=== PATIENT | female | born 1995 | race African-American/Black ===

== ENCOUNTER 2018-02-17 12:55 | Emergency (ER) | payer MEDICAID ==
[~2018-02-17] VITALS: Ht 154.9 cm; Wt 69.9 kg
[2018-02-17 13:15] VITALS: BP 120/60
[2018-02-17 13:22] LABS: BILIRUBIN,URINE NEGATIVE (NEG); CLARITY,URINE CLOUDY; COLOR,URINE YELLOW; NITRITE,URINE NEGATIVE (NEG); PROTEIN,URINE >=300 mg/dL (NEG-TRACE)
[2018-02-17 13:36] LABS: BASO % 1 % (0-3); EOS % 0 % (0-3); HEMATOCRIT 39.3 % (36.0-47.0); HEMOGLOBIN 13.2 g/dL (12.0-15.5); LYMPH # 1.3 x10^3/uL (1.0-4.8); LYMPH % 20 % (24-48); MEAN CORPUSCULAR HEMOGLOBIN 27 pg (25-35); MEAN CORPUSCULAR HGB CONC 34 g/dL (31-37); MEAN CORPUSCULAR VOLUME 82 fL (79-100); MONO # 0.6 x10^3/uL (0.0-1.1); MONO % 10 % (0-9); NEUT # 4.4 x10^3uL (1.8-7.7); NEUT % 70 % (31-73); PLATELET COUNT 250 x10^3/uL (140-400); RED CELL DISTRIBUTION WIDTH 14.8 % (11.5-14.5); WHITE BLOOD COUNT 6.3 x10^3/uL (4.0-11.0)
--- NOTE | 2018-02-17 13:53 | PHYS DOC ---
Past Medical History Past Medical History: Asthma Past Surgical History: No Surgical History Alcohol Use: None Drug Use: None Adult General Chief Complaint Chief Complaint: VAGINAL BLEEDING [facility] Patient is a 22 year old female presents for evaluation of vaginal bleeding that started yesterday. She reports is approximately 6-8 weeks . Last menstrual cycle was 12/21/17. She is . Has not had OB care with this yet. She denies cramping. She reports bleeding has slowed to spotting today. Review of Systems Review of Systems Constitutional: Denies fever or chills [] Eyes: Denies change in visual acuity, redness, or eye pain [] HENT: Denies nasal congestion or sore throat [] Respiratory: Denies cough or shortness of breath [] Cardiovascular: No additional information not addressed in HPI [] GI: Denies abdominal pain, nausea, vomiting, bloody stools or diarrhea [] : vaginal bleeding, Musculoskeletal: Denies back pain or joint pain [] Integument: Denies rash or skin lesions [] Neurologic: Denies headache, focal weakness or sensory changes [] Endocrine: Denies polyuria or polydipsia [] All other systems were reviewed and found to be within normal limits, except as documented in this note. Current Medications Current Medications Current Medications Medications (Trade) Dose Ordered Sig/[facility] Start Time Stop Time Status Last Admin Dose Admin Azithromycin (Zithromax) 1,000 mg 1X ONCE 02/17/18 14:45 02/17/18 14:46 DC 02/17/18 15:05 1,000 MG Ceftriaxone Sodium (Rocephin Im) 250 mg 1X ONCE 02/17/18 14:45 02/17/18 14:46 DC 02/17/18 15:06 250 MG Allergies Allergies Allergies Coded Allergies Type Severity Reaction Last Updated Verified No Known Drug Allergies 02/17/18 No Physical Exam Physical Exam Constitutional: Well developed, well nourished, no acute distress, non-toxic appearance. [] Neck: Normal range of motion, no tenderness, supple, no stridor. [] Cardiovascular:Heart rate regular rhythm, no murmur [] Lungs & Thorax: Bilateral breath sounds clear to auscultation [] Abdomen: Bowel sounds normal, soft, no tenderness, no masses, no pulsatile masses. [] Skin: Warm, dry, no erythema, no rash. [] Back: No tenderness, no CVA tenderness. [] : PELVIC EXAM C [place], large amount of white bubbly discharge in vaginal vault, os closed, no bleeding Extremities: No tenderness, no cyanosis, no clubbing, ROM intact, no edema. [] Neurologic: Alert and oriented X 3, normal motor function, normal sensory function, no focal deficits noted. [] Psychologic: Affect normal, judgement normal, mood normal. [] Current Patient Data Vital Signs Vital Signs Date Time Temp Pulse Resp B/P (MAP) Pulse Ox O2 Delivery O2 Flow Rate FiO2 02/17/18 13:15 98.6 69 16 120/60 (80) 100 Room Air 98.6 Lab Values Laboratory Tests Test 02/17/18 13:02 02/17/18 13:07 02/17/18 13:24 Urine Collection Type Unknown Urine Color Yellow Urine Clarity Cloudy Urine pH 7.0 Urine Specific [place] 1.025 Urine Protein >=300 mg/dL (NEG-TRACE) Urine Glucose (UA) Negative mg/dL (NEG) Urine Ketones (Stick) 15 mg/dL (NEG) Urine Blood Large (NEG) Urine Nitrite Negative (NEG) Urine Bilirubin Negative (NEG) Urine Urobilinogen Dipstick 1.0 mg/dL (0.2 mg/dL) Urine Leukocyte Esterase Moderate (NEG) Urine RBC >40 /HPF (0-2) Urine WBC >40 /HPF (0-4) Urine Squamous Epithelial Cells Mod /LPF Urine Bacteria Moderate /HPF (0-FEW) Urine Mucus Mod /LPF POC Urine HCG, Qualitative Hcg positive (Negative) White Blood Count 6.3 x10^3/uL (4.0-11.0) Red Blood Count 4.80 x10^6/uL (3.50-5.40) Hemoglobin 13.2 g/dL (12.0-15.5) Hematocrit 39.3 % (36.0-47.0) Mean Corpuscular Volume 82 fL (79-100) Mean Corpuscular Hemoglobin 27 pg (25-35) Mean Corpuscular Hemoglobin Concent 34 g/dL (31-37) Red Cell Distribution Width 14.8 % (11.5-14.5) H Platelet Count 250 x10^3/uL (140-400) Neutrophils (%) (Auto) 70 % (31-73) Lymphocytes (%) (Auto) 20 % (24-48) L Monocytes (%) (Auto) 10 % (0-9) H Eosinophils (%) (Auto) 0 % (0-3) Basophils (%) (Auto) 1 % (0-3) Neutrophils # (Auto) 4.4 x10^3uL (1.8-7.7) Lymphocytes # (Auto) 1.3 x10^3/uL (1.0-4.8) Monocytes # (Auto) 0.6 x10^3/uL (0.0-1.1) Eosinophils # (Auto) 0.0 x10^3/uL (0.0-0.7) Basophils # (Auto) 0.0 x10^3/uL (0.0-0.2) Maternal Serum HCG Beta Subunit [id number] mIU/mL (0-5) H Laboratory Tests 02/17/18 13:24 Microbiology 02/17/18 Wet Prep - Final, Complete EKG EKG [] Radiology/Procedures Radiology/Procedures [Ultrasound obstetrics less than 14 weeks 02/17/2018 CLINICAL INDICATION: 1st trimester vaginal bleeding. COMPARISON: None. FINDINGS: Cervix is long and closed measuring 3.6 cm. Uterus measures 8.6 x 7.1 x 5.2 cm. There is an intrauterine gestational sac with eccentric pole measuring 1.9 cm consistent with estimated gestational age of 8 weeks and 3 days. Mean gestational sac diameter is 3.0 cm. heart rate is identified estimated at 162 bpm. Right ovary measures 2.6 x 2.3 x 1.5 cm with normal color Doppler imaging. Left ovary measures 2.9 x 1.7 x 1.8 cm with normal color Doppler imaging. No significant pelvic free fluid. IMPRESSION: Single living intrauterine with estimated gestational age of 8 weeks 3 days. Electronically signed by: Adilson Coughlin MD (02/17/2018 1:57 PM) [facility] ] Course & Med Decision Making Course & Med Decision Making Pertinent Labs and Imaging studies reviewed. (See chart for details) [IUP identified on ultrasound, blood type is AB+ no indication for program, patient had large amount of discharge on vaginal exam, she straight for STDs, she is aware that culture results are pending and not available for 2-3 days. No blood was noted in the vaginal vault, concern for threatened miscarriage, patient is recommended to have pelvic rest and OB follow-up. She was started on metronidazole for bacterial vaginosis.] Dragon Disclaimer Dragon Disclaimer This electronic medical record was generated, in whole or in part, using a voice recognition dictation system. Departure Departure Impression: Primary Impression: Threatened miscarriage in early Additional Impression: BV (bacterial vaginosis) Disposition: HOME, SELF-CARE Condition: STABLE Referrals: NO PCP (PCP) Patient Instructions: Bacterial Vaginosis, Threatened Miscarriage Scripts Metronidazole (METRONIDAZOLE) 500 Mg Tablet 1 TAB PO BID, #14 TAB Prov: JULIAN NOLAN APRN 02/17/18 Problem Qualifiers JULIAN NOLAN APRN Feb 17, 2018 13:53
--- NOTE | 2018-02-17 14:01 | RAD ---
Ultrasound obstetrics less than 14 weeks 02/17/2018 CLINICAL INDICATION: 1st trimester vaginal bleeding. COMPARISON: None. FINDINGS: Cervix is long and closed measuring 3.6 cm. Uterus measures 8.6 x 7.1 x 5.2 cm. There is an intrauterine gestational sac with eccentric pole measuring 1.9 cm consistent with estimated gestational age of 8 weeks and 3 days. Mean gestational sac diameter is 3.0 cm. heart rate is identified estimated at 162 bpm. Right ovary measures 2.6 x 2.3 x 1.5 cm with normal color Doppler imaging. Left ovary measures 2.9 x 1.7 x 1.8 cm with normal color Doppler imaging. No significant pelvic free fluid. IMPRESSION: Single living intrauterine with estimated gestational age of 8 weeks 3 days. Electronically signed by: Adilson Coughlin MD (02/17/2018 1:57 PM) [facility]
[2018-02-17 14:07] LABS: BACTERIA,URINE MODERATE /HPF (0-FEW); RBC,URINE >40 /HPF (0-2); SQUAMOUS EPITHELIAL CELL,UR MOD /LPF; WBC,URINE >40 /HPF (0-4)
[2018-02-17] MEDS ORDERED: METR-84 PO (14:39)
[2018-02-17] MEDS ORDERED: AZITHROMYCIN 250 MG TABLET. PO ONE (14:45)
[2018-02-17] MEDS ORDERED: cefTRIAXone IM 250 MG VIAL IM ONE (14:45)
== END 2018-02-17 15:13 | disposition home or self-care (01) ==
LOC: ER 12:55
DX: O20.0 Threatened abortion (principal); O23.591 Infection of other part of genital tract in pregnancy, first trimester; B96.89 Other specified bacterial agents as the cause of diseases classified elsewhere; O99.511 Diseases of the respiratory system complicating pregnancy, first trimester; J45.909 Unspecified asthma, uncomplicated; Z3A.08 8 weeks gestation of pregnancy
CPT/HCPCS: 36415; 76801; 81001; 81025; 84702; 85025; 86900; 86901; 87491; 87591; 96372; 99284; J0696; Q0111; Q0144; 87086